=== PATIENT | female | born 1990 | race American Indian/Alaskan Native ===

== ENCOUNTER 2021-03-10 11:33 | Emergency (ER) | payer OTHER ==
[2021-03-10 11:47] VITALS: BP 135/93
--- NOTE | 2021-03-10 13:08 | Emergency Department Report ---
- General Chief Complaint: Sore Throat Stated Complaint: COUGH, SORE THROAT Time Seen by Provider: 03/10/21 11:57 Source: patient Mode of arrival: Ambulatory Limitations: No Limitations - History of Present Illness Initial Comments: The patient was evaluated in the emergency department for symptoms described in the history of present illness. He/she was evaluated in the context of the global COVID-19 pandemic, which necessitated consideration that the patient might be at risk for infection with the virus that causes COVID-19. Institutional protocols and algorithms that pertain to the evaluation of patients at risk for COVID-19 are in a state of rapid change based on information released by regulatory bodies including the CDC and federal and state organizations. These policies and algorithms were followed during the patient's care in the emergency department. Please note that these policies, procedures and recommendations changed on a rapid basis. 31-year-old -[place] female presents to the emergency room complaining of a dry cough and sore throat times yesterday. Patient states that she is vaccinated for Covid but has not done a Covid test. She reports she works from home. She has not taken any ghqi-[id number] medications. Denies any fever chills no nausea no vomiting no chest pain shortness of breath. Throat is worse with swallowing. Able to hold secretions does not talk in a muffled voice. Does not complain of gland swelling or neck swelling. Has no known drug allergies MD Complaint: cough, sore throat Onset/Timin Severity: mild Severity scale (0 -10): 1 Consistency: intermittent Worsens With: other (Swallowing) Context: sick contacts (Son) Associated Symptoms: sore throat, cough (dry). denies: fever, headache, rhinorrhea, nasal congestion, stiff neck - Related Data Allergies Allergy/AdvReac Type Severity Reaction Status Date / Time No Known Allergies Allergy Verified 03/10/21 11:45 ED Review of Systems ROS: Stated complaint: COUGH, SORE THROAT Other details as noted in HPI Comment: All other systems reviewed and negative ED Past Medical Hx - Past Medical History Previous Medical History?: No - Surgical History Past Surgical History?: No ED Physical Exam - General Limitations: No Limitations General appearance: alert, in no apparent distress - Head Head exam: Present: atraumatic, normocephalic - Eye Eye exam: Present: normal appearance - ENT ENT exam: Present: mucous membranes moist - Neck Neck exam: Present: normal inspection - Respiratory Respiratory exam: Present: normal lung sounds bilaterally. Absent: respiratory distress - Cardiovascular Cardiovascular Exam: Present: regular rate, normal rhythm. Absent: systolic murmur, diastolic murmur, rubs, gallop - GI/Abdominal GI/Abdominal exam: Present: soft, normal bowel sounds - Extremities Exam Extremities exam: Present: normal inspection - Back Exam Back exam: Present: normal inspection - Neurological Exam Neurological exam: Present: alert, oriented X3 - Psychiatric Psychiatric exam: Present: normal affect, normal mood - Skin Skin exam: Present: warm, dry, intact, normal color. Absent: rash ED Course Vital Signs 03/10/21 03/10/21 11:46 11:55 Temperature 99.4 F Pulse Rate 97 H Respiratory 16 19 Rate Blood Pressure 135/93 O2 Sat by Pulse 99 97 Oximetry ED Medical Decision Making - Medical Decision Making 31-year-old -[place] female presents to the emergency room complaining of a dry cough and sore throat times yesterday. Patient states that she is vaccinated for Covid but has not done a Covid test. She reports she works from home. She has not taken any qhdn-nib-rnlnjqn medications. Denies any fever chills no nausea no vomiting no chest pain shortness of breath. Throat is worse with swallowing. Able to hold secretions does not talk in a muffled voice. Does not complain of gland swelling or neck swelling. Has no known drug allergies Rapid strep sent out results are negative. Patient will be discharged home on supportive care Tylenol ibuprofen increase fluids hot tea warm salt gargles. Ilev-zlp-zjbxwfm cough medication. Encourage patient to get Covid testing. Critical care attestation.: If time is entered above; I have spent that time in minutes in the direct care of this critically ill patient, excluding procedure time. ED Disposition Clinical Impression: Sore throat (viral), Dry cough Disposition: HOME / SELF CARE / HOMELESS Is pt being admited?: No Does the pt Need Aspirin: No Condition: Stable Instructions: Sore Throat, [id number] Additional Instructions: Your symptoms appear most consistent with a nonspecific viral syndrome. However, given this current pandemic, COVID-19 is in the differential of possibilities. Despite your previous negative COVID-19 test, I do recommend repeat outpatient Covid 19 testing. In the meantime, isolate/quarantine y ourself and stay away from anyone who is elderly, immunocompromised or chronically ill. You can use ibuprofen every 6-8 hours and Tylenol every 4-8 hours, using the dosing on the back of the bottle, as needed for any fever or body aches. Return to the emergency department with any worsening of your symptoms, development of chest pain or shortness of breath, or with any acute distress. Referrals: PRIMARY MD FREDA [Primary Care Provider] - 3-5 Days BALBIR PICKETT MD [Staff Physician] - 3-5 Days Forms: Work/School Release Form(ED)
== END 2021-03-10 13:24 | disposition home or self-care (01) ==
LOC: ED 11:33
DX: J02.8 Acute pharyngitis due to other specified organisms (principal); R05.8 Other specified cough
CPT/HCPCS: 87116; 87430; 99283